=== PATIENT | male | born 1995 | race Caucasian/White ===

== ENCOUNTER 2019-06-10 23:04 | Emergency (ER) | payer OTHER ==
[~2019-06-10] VITALS: Ht 185.4 cm; Wt 93.0 kg
[~2019-06-10 23:04] MED LIST: AZITHROMYCIN 2250 MG PO; HYDROCODON-ACE1 EAC7 PO; IBUPROFEN 800800 M1 PO; NOHOMEMEDICATIONS; PENICILLIN VK250 MG PO; PREDNISONE 20 M20 M1 PO; PROMETHAZINE-D120 ML PO; ZYRTEC10 M2 PO
[2019-06-10 23:51] LABS: INFLUENZA A ANTIGEN Negative (Negative); INFLUENZA B ANTIGEN Negative (Negative)
[2019-06-10] MEDS ORDERED: PREDNISONE 20 M20 MG PO (23:54)
[2019-06-10] MEDS ORDERED: TAMIFLU75 MG PO (23:54)
[2019-06-10] MEDS ORDERED: TESSALON PERLE100 MG PO (23:55)
[2019-06-11 00:19] VITALS: BP 166/91
[2019-06-12] MEDS ORDERED: PROAIR HFA8.5 GM INH (20:29)
[2019-06-12] MEDS ORDERED: AZITHROMYCIN 2250 MG PO (20:29)
== END 2019-06-11 00:19 | disposition home or self-care (01) ==
LOC: M.ERS 23:04
PROVIDERS: Nurse Practitioner Family
DX: J06.9 Acute upper respiratory infection, unspecified (principal)

== ENCOUNTER 2019-06-12 19:12 | Emergency (ER) | payer OTHER ==
[~2019-06-12] VITALS: Ht 185.4 cm; Wt 93.0 kg
[~2019-06-12 19:12] MED LIST changes: +PREDNISONE 20 M20 MG PO; +TAMIFLU75 MG PO; +TESSALON PERLE100 MG PO
[2019-06-12] MEDS ORDERED: AZITHROMYCIN 2250 MG PO (20:29)
[2019-06-12] MEDS ORDERED: PROAIR HFA8.5 GM INH (20:29)
[2019-06-12 20:38] VITALS: BP 161/77
== END 2019-06-12 20:40 | disposition home or self-care (01) ==
LOC: M.ERS 19:12
DX: J18.1 Lobar pneumonia, unspecified organism (principal)

== ENCOUNTER 2019-06-14 12:07 | Emergency (ER) | payer OTHER ==
[~2019-06-14] VITALS: Ht 185.4 cm; Wt 93.0 kg
[~2019-06-14 12:07] MED LIST changes: +PROAIR HFA8.5 GM INH
[2019-06-14] MEDS ORDERED: DOXYCYCLINE 10100 M2 PO (12:31)
[2019-06-14] MEDS ORDERED: PREDNISONE 10 M10 M1 PO (12:49)
[2019-06-14 12:57] VITALS: BP 130/81
== END 2019-06-14 12:58 | disposition home or self-care (01) ==
LOC: M.ERS 12:07
DX: K13.0 Diseases of lips (principal); R20.2 Paresthesia of skin; T37.5X5A Adverse effect of antiviral drugs, initial encounter; T36.3X5A Adverse effect of macrolides, initial encounter; Z88.1 Allergy status to other antibiotic agents; Z88.8 Allergy status to other drugs, medicaments and biological substances; Y92.89 Other specified places as the place of occurrence of the external cause

== ENCOUNTER 2019-06-26 23:10 | Emergency (ER) | payer OTHER ==
[~2019-06-26] VITALS: Ht 185.4 cm; Wt 88.5 kg
[~2019-06-26 23:10] MED LIST changes: +DOXYCYCLINE 10100 M2 PO; +PREDNISONE 10 M10 M1 PO
[2019-06-26 23:47] LABS: INFLUENZA A ANTIGEN Negative (Negative)
[2019-06-27 00:10] VITALS: BP 158/84
== END 2019-06-27 00:10 | disposition home or self-care (01) ==
LOC: M.ERS 23:10
PROVIDERS: Family Medicine
DX: J10.1 Influenza due to other identified influenza virus with other respiratory manifestations (principal); Z88.1 Allergy status to other antibiotic agents; Z88.8 Allergy status to other drugs, medicaments and biological substances

== ENCOUNTER 2019-12-22 10:01 | Emergency (ER) | payer OTHER ==
[~2019-12-22] VITALS: Ht 177.8 cm; Wt 72.6 kg
[2019-12-22] MEDS ORDERED: BACTRIM DS TAB1 EAC1 PO (10:56)
[2019-12-22 11:44] VITALS: BP 142/81
== END 2019-12-22 11:44 | disposition home or self-care (01) ==
LOC: M.ERS 10:01
DX: S90.562A Insect bite (nonvenomous), left ankle, initial encounter (principal); L03.116 Cellulitis of left lower limb; Z88.1 Allergy status to other antibiotic agents; Z88.8 Allergy status to other drugs, medicaments and biological substances; W57.XXXA Bitten or stung by nonvenomous insect and other nonvenomous arthropods, initial encounter; Y93.89 Activity, other specified; Y92.89 Other specified places as the place of occurrence of the external cause; Y99.8 Other external cause status

== ENCOUNTER 2020-12-06 17:44 | Emergency (ER) | payer OTHER ==
[~2020-12-06] VITALS: Ht 185.4 cm; Wt 99.8 kg
[~2020-12-06 17:44] MED LIST changes: +BACTRIM DS TAB1 EAC1 PO
[2020-12-06] MEDS ORDERED: IBUPROFEN 800800 M1 PO (18:31)
[2020-12-06 18:44] VITALS: BP 161/85
== END 2020-12-06 18:46 | disposition home or self-care (01) ==
LOC: M.ERS 17:44
DX: S62.603A Fracture of unspecified phalanx of left middle finger, initial encounter for closed fracture (principal); Z88.1 Allergy status to other antibiotic agents; X58.XXXA Exposure to other specified factors, initial encounter; Y93.89 Activity, other specified; Y92.89 Other specified places as the place of occurrence of the external cause; Y99.8 Other external cause status